=== PATIENT | male | born 1945 | race Caucasian/White ===

== ENCOUNTER 2018-06-16 12:40 | Emergency (ER) | payer BC ==
[~2018-06-16] VITALS: Ht 175.3 cm; Wt 90.7 kg
[2018-06-16] MEDS ORDERED: LEVEMIR100 UNIT/1 (13:38)
== END 2018-06-16 17:28 | disposition home or self-care (01) ==
LOC: ER 12:40
DX: S80.01XA Contusion of right knee, initial encounter (principal); W18.09XA Striking against other object with subsequent fall, initial encounter; Y93.89 Activity, other specified; Y92.59 Other trade areas as the place of occurrence of the external cause; Y99.8 Other external cause status